=== PATIENT | male | born 1950 | race Caucasian/White ===

== ENCOUNTER → 2016-07-27 | Outpatient (REF) | payer MEDICARE, MEDICAID ==
[~2016-07-27] MED LIST: /ADVA50050; /PANT40TA; /TAMS4CA; ADV100INH INH; ADVAIR200 INHALATION; ALBU17IN INH; AMBI10TA; ASPI1TAB PO; ASPI81TA45; CELE-19 PO; DOVONEX; FLOM5CAP PO; FLOMAX 0.4 PO; FOLI1TAB; FOLIC1 PO; LEVAQUI500 PO; LOVA40TA; LOVA40TA PO; LOVASTAT40 PO; METH2.5T; METH2.5TA PO; NAPROS500 PO; NEXIUM40 PO; PRIL40CA; PRILOSEC40 PO; PROSCAR5 PO; PROV90AE; PROVENTILI PO; RISP3TAB16; SING10TA31; SING10TA32 PO; SINGULAI10 PO; TEMOVATE; TEMOVATEOI TOPICAL; TRAZ0DON5 PO; VITA50003 PO; VITA500055 PO; ZOCO5TAB; ZOLOFT100 PO; [UNRECOGNIZED DRUG - REMARK]; [UNRECOGNIZED DRUG - SUPPLY]
[2016-07-27 13:11] LABS: ALBUMIN 4.3 GM/DL (3.2-5.2); ALBUMIN/GLOBULIN RATIO 1.43 (1.00-1.93); ALKALINE PHOSPHATASE 72 U/L (45-117); ALT/SGPT 17 U/L (12-78); ANION GAP 9 MEQ/L (8-16); AST/SGOT 14 U/L (15-37); BILIRUBIN,TOTAL 0.5 MG/DL (0.2-1.0); BLOOD UREA NITROGEN 11 MG/DL (7-18); CALCIUM LEVEL 9.1 MG/DL (8.8-10.2); CARBON DIOXIDE LEVEL 30 MEQ/L (21-32); CHLORIDE LEVEL 103 MEQ/L (98-107); CHOLESTEROL LEVEL 164 MG/DL (<200); GLOMERULAR FILTRATION RATE > 60.0 (>49); GLUCOSE, FASTING 87 MG/DL (80-110); POTASSIUM SERUM 4.1 MEQ/L (3.5-5.1); SODIUM LEVEL 142 MEQ/L (136-145); TOTAL PROTEIN 7.3 GM/DL (6.4-8.2); TRIGLYCERIDES LEVEL 88 MG/DL (<150)
[2016-07-28 10:15] LABS: FREE KAPPA LIGHT CHAINS SERUM 34.98 mg/L (3.30-19.40); FREE LAMBDA LIGHT CHAINS SERUM 20.2 mg/L (5.71-26.30); KAPPA/LAMBDA RATIO SERUM 1.73 (0.26-1.65)
== END ==
LOC: M SFHCPLAZ 09:57
PROVIDERS: ATTEND Family Medicine
DX: F17.200 Nicotine dependence, unspecified, uncomplicated (principal); E55.9 Vitamin D deficiency, unspecified; D47.2 Monoclonal gammopathy; Z79.899 Other long term (current) drug therapy

== ENCOUNTER → 2016-08-03 | Outpatient (CLI) | payer MEDICARE, MEDICAID ==
[~2016-08-03] MED LIST changes: +ISOVUE-370 76% 100ML VIAL (Q9967) As Ordered ONE
--- NOTE | 2016-08-03 13:51 | REP ---
CT NECK WITH CONTRAST: HISTORY: Right posterior triangle mass. CONTRAST: Isovue 370, 75 mL. There is minimal thickening of the right base of the epiglottis. There is minimal mass effect on the right vallecula. The naso- and oropharynx, larynx and subglottic trachea are normal in appearance. The salivary and thyroid glands are normal. Small lymph nodes less than 1 cm in size are present in the posterior triangles and submandibular areas. Degenerative change is present in the cervical spine. The lung apices are clear. The visualized sinuses are clear. IMPRESSION: There is minimal thickening of the right base of the epiglottis with minimal mass effect on the right vallecula. This is suspicious for a neoplasm. Signed by Josef Pineda MD 08/03/2016 01:54 P
== END ==
LOC: M RAD 12:30
PROVIDERS: ATTEND Family Medicine
DX: R22.1 Localized swelling, mass and lump, neck (principal)
CPT/HCPCS: 70491; Q9967

== ENCOUNTER → 2016-12-29 | Outpatient (REF) | payer MEDICARE, MEDICAID ==
[~2016-12-29] MED LIST changes: -CELE-19 PO; +CELE1CAP4 PO; -ISOVUE-370 76% 100ML VIAL (Q9967) As Ordered ONE; +VITA1CAP40 PO; -VITA50003 PO
[2016-12-29 18:19] LABS: BASO % 0.4 % (0.0-1.0); EOS # 0.2 K/mm3 (0.0-0.50); EOS % 2.2 % (0.0-3.0); LARGE UNSTAINED CELL # 0.1 K/mm3 (0.0-0.4); LARGE UNSTAINED CELL % 1.3 % (0.0-4.0); LYMPH # 1.9 K/mm3 (1.5-4.5); LYMPH % 21.7 % (24.0-44.0); MEAN CORPUSCULAR HEMOGLOBIN 32.3 pg (27.0-33.0); MEAN CORPUSCULAR HGB CONC 33.5 g/dl (32.0-36.5); MEAN CORPUSCULAR VOLUME 96.4 fl (80.0-96.0); MONO # 0.5 K/mm3 (0.0-0.8); MONO % 6.4 % (0.0-5.0); NEUTROPHILS # 5.6 K/mm3 (1.8-7.7); PLATELET COUNT, AUTOMATED 191 k/mm3 (150-450); RED CELL DISTRIBUTION WIDTH 13.9 % (11.5-14.5); WHITE BLOOD COUNT 8.2 K/mm3 (4.0-10.0)
[2016-12-29 18:21] LABS: ALBUMIN 3.8 GM/DL (3.2-5.2); ALBUMIN/GLOBULIN RATIO 1.19 (1.00-1.93); ALKALINE PHOSPHATASE 78 U/L (45-117); ALT/SGPT 45 U/L (12-78); ANION GAP 8 MEQ/L (8-16); AST/SGOT 23 U/L (15-37); BILIRUBIN,TOTAL 0.3 MG/DL (0.2-1.0); BLOOD UREA NITROGEN 12 MG/DL (7-18); CALCIUM LEVEL 8.6 MG/DL (8.8-10.2); CARBON DIOXIDE LEVEL 30 MEQ/L (21-32); CHLORIDE LEVEL 106 MEQ/L (98-107); FERRITIN 33 NG/ML (26-388); GLOMERULAR FILTRATION RATE > 60.0 (>49); GLUCOSE, FASTING 95 MG/DL (80-110); INR 0.93; SODIUM LEVEL 144 MEQ/L (136-145); TOTAL IRON BINDING CAPACITY 313 UG/DL (250-450)
[2016-12-30 10:26] LABS: ALBUMIN 4.19 GM/DL (3.29-5.55); ALBUMIN % 59.9 % (55.8-66.1)
[2016-12-30 10:27] LABS: GAMMA GLOBULIN % 12.9 % (11.1-18.8)
[2016-12-31 11:59] LABS: PRETREATED FOLATE FOR RBCFOL 7.4 NG/ML
[2017-01-15 14:17] LABS: FIBROSPECT1 SEE SEPARATE REPORT
== END ==
LOC: M SFHCPLAZ 13:58
PROVIDERS: ATTEND Family Medicine
DX: L40.9 Psoriasis, unspecified (principal); D47.2 Monoclonal gammopathy; N40.1 Benign prostatic hyperplasia with lower urinary tract symptoms; D50.9 Iron deficiency anemia, unspecified
CPT/HCPCS: 36415; 80053; 82105; 82140; 82397; 82728; 82747; 83520; 83550; 83883; 84165; 85025; 85610; 85730; 90471; G0103; G0463

== ENCOUNTER → 2017-05-19 | Outpatient (REF) | payer MEDICARE, MEDICAID ==
[2017-05-19 11:51] LABS: HEMATOCRIT 43.3 % (42.0-52.0)
[2017-05-19 11:55] LABS: BASO # 0.1 10^3/uL (0.0-0.2); BASO % 0.6 % (0.0-1.0); EOS # 0.1 10^3/uL (0.0-0.50); EOS % 1.7 % (0.0-3.0); HEMOGLOBIN 14.3 g/dl (14.0-18.0); IMMATURE GRANULOCYTE % 0.5 % (0-0); LYMPH # 1.5 10^3/uL (1.5-4.5); LYMPH % 18.4 % (24.0-44.0); MEAN CORPUSCULAR HEMOGLOBIN 31.7 pg (27.0-33.0); MEAN CORPUSCULAR HGB CONC 32.5 g/dl (32.0-36.5); MEAN CORPUSCULAR VOLUME 97.6 fl (80.0-96.0); MONO # 0.6 10^3/uL (0.0-0.8); MONO % 7.6 % (0.0-5.0); NEUTROPHILS # 5.7 10^3/uL (1.8-7.7); NEUTROPHILS % 71.2 % (36.0-66.0); PLATELET COUNT, AUTOMATED 220 10^3/uL (150-450); RED BLOOD COUNT 4.51 10^6/uL (4.30-6.10); RED CELL DISTRIBUTION WIDTH 14.1 % (11.5-14.5); RETICULOCYTE # 45.1 10^9/L (17-77); WHITE BLOOD COUNT 8.1 10^3/uL (4.0-10.0)
[2017-05-19 12:10] LABS: TOTAL 25(OH) VITAMIN D 32.2 NG/ML (30.0-100.0)
[2017-05-19 12:11] LABS: PTH INTACT 36.1 PG/ML (14.0-72.0); VITAMIN B12 LEVEL 613 PG/ML (247-911)
[2017-05-19 12:13] LABS: ALBUMIN 4.3 GM/DL (3.2-5.2); ALBUMIN/GLOBULIN RATIO 1.34 (1.00-1.93); ALKALINE PHOSPHATASE 80 U/L (45-117); ALT/SGPT 35 U/L (12-78); ANION GAP 6 MEQ/L (8-16); AST/SGOT 25 U/L (7-37); BILIRUBIN,TOTAL 0.5 MG/DL (0.2-1.0); BLOOD UREA NITROGEN 15 MG/DL (7-18); CARBON DIOXIDE LEVEL 31 MEQ/L (21-32); CHLORIDE LEVEL 105 MEQ/L (98-107); CREATININE FOR GFR 0.73 MG/DL (0.70-1.30); GLOMERULAR FILTRATION RATE > 60.0 (>49); GLUCOSE, FASTING 130 MG/DL (80-110); POTASSIUM SERUM 4.1 MEQ/L (3.5-5.1); SODIUM LEVEL 142 MEQ/L (136-145); TOTAL PROTEIN 7.5 GM/DL (6.4-8.2)
[2017-05-19 12:14] LABS: ESTIMATED AVERAGE GLUCOSE 105 MG/DL (60-110); HEMOGLOBIN A1c 5.3 %
[2017-05-20 12:06] LABS: PRETREATED FOLATE FOR RBCFOL 6.7 NG/ML; RBC FOLATE 324.9 NG/ML (280-791)
[2017-05-25 00:06] LABS: FREE KAPPA LIGHT CHAINS SERUM 38.1 mg/L (3.3-19.4); FREE LAMBDA LIGHT CHAINS SERUM 21.3 mg/L (5.7-26.3); FREE LAMBDA LIGHT CHAINS URINE 1.48 mg/L (0.24-6.66); KAPPA/LAMBDA RATIO SERUM 1.79 (0.26-1.65); KAPPA/LAMBDA RATIO URINE 28.85 (2.04-10.37)
== END ==
LOC: M SFHCPLAZ 09:21
DX: L40.9 Psoriasis, unspecified (principal); D47.2 Monoclonal gammopathy; E55.9 Vitamin D deficiency, unspecified; Z79.899 Other long term (current) drug therapy
CPT/HCPCS: 82607

== ENCOUNTER → 2017-05-27 | Outpatient (CLI) | payer MEDICARE, MEDICAID | LOC: M RAD 07:41 | DX: Z12.2 Encounter for screening for malignant neoplasm of respiratory organs (principal); R91.1 Solitary pulmonary nodule; J44.9 Chronic obstructive pulmonary disease, unspecified; F17.210 Nicotine dependence, cigarettes, uncomplicated | CPT/HCPCS: G0297 ==

== ENCOUNTER → 2017-11-24 | Outpatient (CLI) | payer MEDICARE, MEDICAID | LOC: M RAD 07:33 | DX: F17.210 Nicotine dependence, cigarettes, uncomplicated (principal) | CPT/HCPCS: 71250 ==

== ENCOUNTER → 2017-12-08 | Outpatient (REF) | payer MEDICARE, MEDICAID ==
[2017-12-08 11:06] LABS: BASO % 0.4 % (0.0-1.0); EOS # 0.1 10^3/uL (0.0-0.50); EOS % 1.3 % (0.0-3.0); HEMOGLOBIN 14.8 g/dl (13.5-17.5); IMMATURE GRANULOCYTE % 0.3 % (0-3.0); LYMPH # 1.4 10^3/uL (1.5-4.5); LYMPH % 20.6 % (24.0-44.0); MEAN CORPUSCULAR HEMOGLOBIN 31.8 pg (27.0-33.0); MEAN CORPUSCULAR HGB CONC 32.9 g/dl (32.0-36.5); MEAN CORPUSCULAR VOLUME 96.8 fl (80.0-96.0); MONO # 0.7 10^3/uL (0.0-0.8); MONO % 9.5 % (0.0-5.0); NEUTROPHILS # 4.7 10^3/uL (1.8-7.7); NEUTROPHILS % 67.9 % (36.0-66.0); PLATELET COUNT, AUTOMATED 172 10^3/uL (150-450); RED BLOOD COUNT 4.65 10^6/uL (4.30-6.10); RED CELL DISTRIBUTION WIDTH 13.3 % (11.5-14.5); RETIC HEMOGLOBIN EQUIVALENT 37.5 pg (24-36); RETICULOCYTE # 32.1 10^9/L (17-77); RETICULOCYTE % 0.7 % (0.5-1.5)
[2017-12-08 11:40] LABS: ESTIMATED AVERAGE GLUCOSE 111 MG/DL (60-110); HEMOGLOBIN A1c 5.5 %
[2017-12-08 12:53] LABS: ALBUMIN/GLOBULIN RATIO 1.11 (1.00-1.93); ALKALINE PHOSPHATASE 80 U/L (45-117); ALT/SGPT 19 U/L (12-78); ANION GAP 9 MEQ/L (8-16); AST/SGOT 16 U/L (7-37); BILIRUBIN,TOTAL 0.5 MG/DL (0.2-1.0); BLOOD UREA NITROGEN 10 MG/DL (7-18); CALCIUM LEVEL 9.1 MG/DL (8.8-10.2); CARBON DIOXIDE LEVEL 29 MEQ/L (21-32); CHLORIDE LEVEL 104 MEQ/L (98-107); CREATININE FOR GFR 0.76 MG/DL (0.70-1.30); FERRITIN 40 NG/ML (26-388); GLOMERULAR FILTRATION RATE > 60.0 (>49); GLUCOSE, FASTING 92 MG/DL (70-100); IRON (FE) 65 UG/DL (65-175); PERCENT SATURATION 19.8 % (19.7-50.0); POTASSIUM SERUM 4.1 MEQ/L (3.5-5.1); SODIUM LEVEL 142 MEQ/L (136-145); TOTAL IRON BINDING CAPACITY 329 UG/DL (250-450); TOTAL PROTEIN 7.6 GM/DL (6.4-8.2)
[2017-12-09 10:02] LABS: ALPHA FETOPROTEIN TUMOR QUANT 4.7 NG/ML (<8.1)
[2017-12-09 11:29] LABS: PRETREATED FOLATE FOR RBCFOL 8.9 NG/ML; RBC FOLATE 415.3 NG/ML (280-791)
[2017-12-10 00:06] LABS: INSULIN LEVEL 5.5 uIU/mL (2.6-24.9)
[2017-12-10 00:06] LABS: FREE KAPPA LIGHT CHAINS SERUM 36.4 mg/L (3.3-19.4); FREE LAMBDA LIGHT CHAINS SERUM 18.4 mg/L (5.7-26.3); KAPPA/LAMBDA RATIO SERUM 1.98 (0.26-1.65)
== END ==
LOC: M SFHCPLAZ 09:47
DX: R73.01 Impaired fasting glucose (principal); D47.2 Monoclonal gammopathy; E53.8 Deficiency of other specified B group vitamins; E83.119 Hemochromatosis, unspecified
CPT/HCPCS: 83525

== ENCOUNTER → 2018-05-04 | Outpatient (REF) | payer MEDICARE, MEDICAID ==
[~2018-05-04] MED LIST changes: +FLOM0.4C39 PO; -FLOM5CAP PO; +METH2.5T48 PO; -METH2.5TA PO; -VITA1CAP40 PO; +VITA50005 PO
[2018-05-04 14:05] LABS: BASO % 0.5 % (0.0-1.0); EOS # 0.1 10^3/uL (0.0-0.50); EOS % 1.8 % (0.0-3.0); HEMATOCRIT 46.7 % (42.0-52.0); HEMOGLOBIN 15.3 g/dl (13.5-17.5); LYMPH % 24.8 % (24.0-44.0); MEAN CORPUSCULAR HEMOGLOBIN 31.6 pg (27.0-33.0); MEAN CORPUSCULAR HGB CONC 32.8 g/dl (32.0-36.5); MEAN CORPUSCULAR VOLUME 96.5 fl (80.0-96.0); MONO # 0.7 10^3/uL (0.0-0.8); MONO % 8.8 % (0.0-5.0); NEUTROPHILS # 5.1 10^3/uL (1.8-7.7); NEUTROPHILS % 63.7 % (36.0-66.0); PLATELET COUNT, AUTOMATED 220 10^3/uL (150-450); RED BLOOD COUNT 4.84 10^6/uL (4.30-6.10)
[2018-05-04 14:26] LABS: ALBUMIN 4.2 GM/DL (3.2-5.2); ALT/SGPT 35 U/L (12-78); BILIRUBIN,TOTAL 0.4 MG/DL (0.2-1.0); BLOOD UREA NITROGEN 13 MG/DL (7-18); CALCIUM LEVEL 9.1 MG/DL (8.8-10.2); CARBON DIOXIDE LEVEL 31 MEQ/L (21-32); CHLORIDE LEVEL 101 MEQ/L (98-107); CREATININE FOR GFR 0.78 MG/DL (0.70-1.30); GLOMERULAR FILTRATION RATE > 60.0 (>49); GLUCOSE, FASTING 85 MG/DL (70-100); SODIUM LEVEL 138 MEQ/L (136-145); TOTAL PROTEIN 7.8 GM/DL (6.4-8.2)
[2018-05-04 14:30] LABS: TOTAL 25(OH) VITAMIN D 32.7 NG/ML (30.0-100.0)
[2018-05-04 14:31] LABS: PTH INTACT 38.6 PG/ML (18.5-88.0)
[2018-05-09 12:48] LABS: ALBUMIN 4.74 GM/DL (3.29-5.55); ALBUMIN % 60.8 % (55.8-66.1); ALPHA-1-GLOBULIN % 4.5 % (2.9-4.9); ALPHA-1-GLOBULINS 0.35 GM/DL (0.17-0.41); ALPHA-2-GLOBULINS 0.82 GM/DL (0.42-0.99); ALPHA-2-GLOBULINS % 10.5 % (7.1-11.8); BETA-1-GLOBULINS 0.46 GM/DL (0.28-0.60); BETA-1-GLOBULINS % 5.9 % (4.7-7.2); BETA-2-GLOBULINS 0.41 GM/DL (0.19-0.55); BETA-2-GLOBULINS % 5.3 % (3.2-6.5); GAMMA GLOBULINS 1.01 GM/DL (0.65-1.58)
== END ==
LOC: M SFHCPLAZ 10:34
PROVIDERS: ATTEND Family Medicine
DX: E55.9 Vitamin D deficiency, unspecified (principal); Z12.5 Encounter for screening for malignant neoplasm of prostate; D47.2 Monoclonal gammopathy
CPT/HCPCS: 36415; 80053; 82306; 83970; 84165; 85025; 90682; G0008; G0103; G0463

== ENCOUNTER → 2018-07-19 | Outpatient (CLI) | payer MEDICARE, MEDICAID ==
--- NOTE | 2018-07-19 13:45 | PFTRPT ---
Height: 67.00 Inches Weight: 154.00 Lbs BSA: 1.81 Diagnosis: J44.9 DATE OF PROCEDURE: 07/19/2018 ORDERING PHYSICIAN: Dr. Junaid Abarca. INTERPRETATION: Pre and post bronchodilator study of excellent technical quality. Forced vital capacity reduced. FEV1 out of proportion. Obstructive index is, therefore, reduced. FLOW VOLUME LOOP: Expiratory limb of the flow volume loop consistent with flow rate limitation. Favorable bronchodilator response identified. LUNG VOLUME: Total lung capacity normal. Residual volume borderline for air trapping. DIFFUSING CAPACITY: Diffuse capacity if fairly reduced but does correct for alveolar volume. HEMOGLOBIN: No hemoglobin available for correction. AIRWAY MECHANICS: Airway resistance is markedly elevated with a concomitant decrease in the airway conductance. IMPRESSION: Moderate obstructive ventilatory impairment with underlying air trapping and diffusion capacity impairment. Favorable bronchodilator response. Please correlate clinically. MTDD
== END ==
LOC: M CARPUL 12:12
PROVIDERS: ATTEND Family Medicine
DX: J44.9 Chronic obstructive pulmonary disease, unspecified (principal)

== ENCOUNTER → 2018-10-19 | Outpatient (REF) | payer MEDICARE, MEDICAID ==
[~2018-10-19] MED LIST changes: -/ADVA50050; -/PANT40TA; -/TAMS4CA; +ADVA1AER2; -ASPI1TAB PO; +ASPI81TA26 PO; +FLOM0.4C39; +PROT1TAB2
[2018-10-19 12:44] LABS: BASO % 0.4 % (0.0-1.0); EOS # 0.1 10^3/uL (0.0-0.50); EOS % 0.7 % (0.0-3.0); HEMATOCRIT 45.2 % (42.0-52.0); HEMOGLOBIN 14.8 g/dl (13.5-17.5); LYMPH # 1.3 10^3/uL (1.5-4.5); LYMPH % 18.8 % (24.0-44.0); MEAN CORPUSCULAR HEMOGLOBIN 32.6 pg (27.0-33.0); MEAN CORPUSCULAR HGB CONC 32.7 g/dl (32.0-36.5); MEAN CORPUSCULAR VOLUME 99.6 fl (80.0-96.0); MONO # 0.6 10^3/uL (0.0-0.8); MONO % 8.2 % (0.0-5.0); NEUTROPHILS # 4.8 10^3/uL (1.8-7.7); NEUTROPHILS % 71.6 % (36.0-66.0); PLATELET COUNT, AUTOMATED 193 10^3/uL (150-450); RED BLOOD COUNT 4.54 10^6/uL (4.30-6.10); WHITE BLOOD COUNT 6.7 10^3/uL (4.0-10.0)
[2018-10-19 13:03] LABS: ALT/SGPT 30 U/L (12-78); BILIRUBIN,TOTAL 0.5 MG/DL (0.2-1.0); BLOOD UREA NITROGEN 13 MG/DL (7-18); CALCIUM LEVEL 9.6 MG/DL (8.8-10.2); CARBON DIOXIDE LEVEL 31 MEQ/L (21-32); CHLORIDE LEVEL 103 MEQ/L (98-107); CHOLESTEROL LEVEL 152 MG/DL (<200); CREATININE FOR GFR 0.75 MG/DL (0.70-1.30); GLOMERULAR FILTRATION RATE > 60.0 (>49); GLUCOSE, FASTING 110 MG/DL (70-100); HDL CHOLESTEROL 51 MG/DL (>40); LDL CHOLESTEROL 75 MG/DL (<100); NON-HDL-C 101 MG/DL; POTASSIUM SERUM 4.4 MEQ/L (3.5-5.1); SODIUM LEVEL 138 MEQ/L (136-145); TOTAL PROTEIN 7.5 GM/DL (6.4-8.2); TRIGLYCERIDES LEVEL 131 MG/DL (<150)
[2018-10-19 13:19] LABS: HEMOGLOBIN A1c 5.2 %
== END ==
LOC: M SFHCPLAZ 10:22
PROVIDERS: ATTEND Family Medicine
DX: R73.01 Impaired fasting glucose (principal); D47.2 Monoclonal gammopathy; D50.9 Iron deficiency anemia, unspecified; Z12.5 Encounter for screening for malignant neoplasm of prostate; E78.5 Hyperlipidemia, unspecified
CPT/HCPCS: 36415; 80053; 80061; 83036; 85025; 85046; G0103; G0463

== ENCOUNTER → 2018-11-14 | Outpatient (CLI) | payer MEDICARE, MEDICAID ==
--- NOTE | 2018-11-14 10:17 | REP ---
Low-dose lung screening CT of the chest: The study is performed without IV contrast. Images are presented at lung windowing only. Comparisons are 05/27/2017 and 11/24/2017. The right lower lobe lung nodule identified on 05/27/2017 is no longer present, compatible with transient atelectasis. The 3 ml left lower lobe lung nodule identified on 11/24/2017 is unchanged. This is a category II lung nodule with the probability of malignancy less than 1%. There is a 7 ml lung nodule in the right middle lobe on image 58. Retrospect, this is unchanged from both comparison studies, therefore, this is a category II lung nodule with the probability of malignancy less than 1%. No other lung nodules are identified. There are no infiltrates. No pleural effusions. Impression: There are category one lung nodules as described. The probability of malignancy is less than 1%. Depending on risk factors, annual follow-up low-dose lung screening CT might be considered. Electronically Signed by Bharath Galeano MD 11/14/2018 10:08 A
== END ==
LOC: M RAD 08:06
PROVIDERS: ATTEND Family Medicine
DX: F17.200 Nicotine dependence, unspecified, uncomplicated (principal); Z12.2 Encounter for screening for malignant neoplasm of respiratory organs

== ENCOUNTER → 2019-04-06 | Outpatient (REF) | payer MEDICARE, MEDICAID ==
[2019-04-06 14:14] LABS: HEMATOCRIT 44.1 % (42.0-52.0)
[2019-04-06 14:18] LABS: BASO # 0.1 10^3/uL (0.0-0.2); BASO % 0.6 % (0.0-1.0); EOS # 0.1 10^3/uL (0.0-0.5); EOS % 1.2 % (0.0-3.0); HEMATOCRIT 43.9 % (42.0-52.0); HEMOGLOBIN 13.8 g/dl (13.5-17.5); LYMPH # 1.5 10^3/uL (1.5-5.0); LYMPH % 18.9 % (24.0-44.0); MEAN CORPUSCULAR HEMOGLOBIN 31.9 pg (27.0-33.0); MEAN CORPUSCULAR HGB CONC 31.4 g/dl (32.0-36.5); MEAN CORPUSCULAR VOLUME 101.4 fl (80.0-96.0); MONO # 0.7 10^3/uL (0.0-0.8); MONO % 8.4 % (0.0-5.0); NEUTROPHILS # 5.7 10^3/uL (1.5-8.5); NEUTROPHILS % 70.7 % (36.0-66.0); PLATELET COUNT, AUTOMATED 209 10^3/uL (150-450); RED BLOOD COUNT 4.33 10^6/uL (4.30-6.10); WHITE BLOOD COUNT 8.1 10^3/uL (4.0-10.0)
[2019-04-06 15:22] LABS: ALBUMIN 3.9 GM/DL (3.2-5.2); ALT/SGPT 36 U/L (12-78); BILIRUBIN,TOTAL 0.3 MG/DL (0.2-1.0); BLOOD UREA NITROGEN 12 MG/DL (7-18); CALCIUM LEVEL 8.6 MG/DL (8.8-10.2); CARBON DIOXIDE LEVEL 31 MEQ/L (21-32); CHLORIDE LEVEL 105 MEQ/L (98-107); CREATININE FOR GFR 0.78 MG/DL (0.70-1.30); GLOMERULAR FILTRATION RATE > 60.0 (>49); GLUCOSE, FASTING 99 MG/DL (70-100); POTASSIUM SERUM 4.4 MEQ/L (3.5-5.1); SODIUM LEVEL 141 MEQ/L (136-145); TOTAL PROTEIN 7.3 GM/DL (6.4-8.2)
[2019-04-06 15:29] LABS: TOTAL 25(OH) VITAMIN D 69.2 NG/ML (30.0-100.0)
[2019-04-06 15:30] LABS: PTH INTACT 45.3 PG/ML (18.5-88.0)
[2019-04-11 00:06] LABS: FREE KAPPA LIGHT CHAINS SERUM 30.7 mg/L (3.3-19.4); FREE LAMBDA LIGHT CHAINS SERUM 15.9 mg/L (5.7-26.3); INSULIN LEVEL 13.3 uIU/mL (2.6-24.9); KAPPA/LAMBDA RATIO SERUM 1.93 (0.26-1.65)
== END ==
LOC: M SFHCPLAZ 10:56
PROVIDERS: ATTEND Family Medicine
DX: E53.8 Deficiency of other specified B group vitamins (principal); L40.9 Psoriasis, unspecified; E55.9 Vitamin D deficiency, unspecified; Z12.5 Encounter for screening for malignant neoplasm of prostate; R73.01 Impaired fasting glucose; D47.2 Monoclonal gammopathy
CPT/HCPCS: 36415; 80053; 82172; 82306; 82747; 83010; 83525; 83883; 83970; 85025; G0103; G0463

== ENCOUNTER → 2019-08-31 | Outpatient (REF) | payer MEDICARE, MEDICAID ==
[2019-08-31 11:33] LABS: BASO # 0.1 10^3/uL (0.0-0.2); BASO % 0.7 % (0.0-1.0); EOS # 0.1 10^3/uL (0.0-0.5); EOS % 1.1 % (0.0-3.0); HEMATOCRIT 43.7 % (42.0-52.0); HEMOGLOBIN 14.3 g/dl (13.5-17.5); LYMPH # 1.4 10^3/uL (1.5-5.0); LYMPH % 19.1 % (24.0-44.0); MEAN CORPUSCULAR HEMOGLOBIN 32.4 pg (27.0-33.0); MEAN CORPUSCULAR HGB CONC 32.7 g/dl (32.0-36.5); MEAN CORPUSCULAR VOLUME 98.9 fl (80.0-96.0); MONO # 0.7 10^3/uL (0.0-0.8); MONO % 9.9 % (0.0-5.0); NEUTROPHILS # 5.1 10^3/uL (1.5-8.5); NEUTROPHILS % 68.7 % (36.0-66.0); PLATELET COUNT, AUTOMATED 197 10^3/uL (150-450); RED BLOOD COUNT 4.42 10^6/uL (4.30-6.10); WHITE BLOOD COUNT 7.5 10^3/uL (4.0-10.0)
[2019-08-31 11:34] LABS: ALT/SGPT 27 U/L (12-78); BILIRUBIN,TOTAL 0.5 MG/DL (0.2-1.0); BLOOD UREA NITROGEN 11 MG/DL (7-18); CALCIUM LEVEL 9.3 MG/DL (8.8-10.2); CARBON DIOXIDE LEVEL 31 MEQ/L (21-32); CHLORIDE LEVEL 103 MEQ/L (98-107); CREATININE FOR GFR 0.79 MG/DL (0.70-1.30); FERRITIN 72 NG/ML (26-388); GLOMERULAR FILTRATION RATE > 60.0 (>49); GLUCOSE, FASTING 101 MG/DL (70-100); HEMATOCRIT 43.7 % (42.0-52.0); IRON (FE) 96 UG/DL (65-175); PERCENT SATURATION 31.2 % (19.7-50.0); POTASSIUM SERUM 4.4 MEQ/L (3.5-5.1); SODIUM LEVEL 139 MEQ/L (136-145); TOTAL IRON BINDING CAPACITY 308 UG/DL (250-450); TOTAL PROTEIN 7.4 GM/DL (6.4-8.2)
[2019-08-31 11:42] LABS: VITAMIN B12 LEVEL 666 PG/ML (247-911)
== END ==
LOC: M SFHCPLAZ 09:50
PROVIDERS: ATTEND Family Medicine
DX: E53.8 Deficiency of other specified B group vitamins (principal); R73.01 Impaired fasting glucose; E83.119 Hemochromatosis, unspecified; Z12.5 Encounter for screening for malignant neoplasm of prostate
CPT/HCPCS: 36415; 80053; 82607; 82728; 82747; 83525; 83550; 85025; G0103; G0463

== ENCOUNTER → 2020-01-04 | Outpatient (CLI) | payer MEDICARE, MEDICAID ==
[2020-01-04 14:24] LABS: HEMATOCRIT 43.6 % (42.0-52.0); HEMOGLOBIN 14.3 g/dl (13.5-17.5); MEAN CORPUSCULAR HEMOGLOBIN 33.3 pg (27.0-33.0); MEAN CORPUSCULAR HGB CONC 32.8 g/dl (32.0-36.5); MEAN CORPUSCULAR VOLUME 101.6 fl (80.0-96.0); PLATELET COUNT, AUTOMATED 196 10^3/uL (150-450); RED BLOOD COUNT 4.29 10^6/uL (4.30-6.10); WHITE BLOOD COUNT 7.3 10^3/uL (4.0-10.0)
[2020-01-04 14:42] LABS: ALBUMIN 3.9 GM/DL (3.2-5.2); ALT/SGPT 41 U/L (12-78); BILIRUBIN,TOTAL 0.4 MG/DL (0.2-1.0); BLOOD UREA NITROGEN 9 MG/DL (7-18); CALCIUM LEVEL 8.9 MG/DL (8.8-10.2); CARBON DIOXIDE LEVEL 30 MEQ/L (21-32); CHLORIDE LEVEL 104 MEQ/L (98-107); CREATININE FOR GFR 0.81 MG/DL (0.70-1.30); GLOMERULAR FILTRATION RATE > 60.0 (>49); GLUCOSE, FASTING 130 MG/DL (70-100); SODIUM LEVEL 140 MEQ/L (136-145); TOTAL PROTEIN 7.3 GM/DL (6.4-8.2)
[2020-01-04 15:35] LABS: HEMOGLOBIN A1c 5.3 %
[2020-01-05 18:11] LABS: FREE KAPPA LIGHT CHAINS SERUM 40.2 mg/L (3.3-19.4); FREE LAMBDA LIGHT CHAINS SERUM 19.2 mg/L (5.7-26.3); KAPPA/LAMBDA RATIO SERUM 2.09 (0.26-1.65)
[2020-01-08 12:31] LABS: ALBUMIN 4.36 GM/DL (3.29-5.55); ALBUMIN % 59.7 % (55.8-66.1); ALPHA-1-GLOBULIN % 4.7 % (2.9-4.9); ALPHA-1-GLOBULINS 0.34 GM/DL (0.17-0.41); BETA-1-GLOBULINS 0.44 GM/DL (0.28-0.60); BETA-2-GLOBULINS % 5.5 % (3.2-6.5); GAMMA GLOBULIN % 13.1 % (11.1-18.8); GAMMA GLOBULINS 0.96 GM/DL (0.65-1.58)
== END ==
LOC: M PLALAB 09:22
PROVIDERS: ATTEND Family Medicine
DX: D47.2 Monoclonal gammopathy (principal); Z12.5 Encounter for screening for malignant neoplasm of prostate; Z51.81 Encounter for therapeutic drug level monitoring; Z79.899 Other long term (current) drug therapy
CPT/HCPCS: 36415; 80053; 83036; 83883; 84165; 85027; G0103; G0463

== ENCOUNTER → 2020-07-22 | Outpatient (REF) | payer MEDICARE, MEDICAID ==
[2020-07-22 10:58] LABS: BASO % 0.6 % (0.0-1.0); EOS # 0.1 10^3/uL (0.0-0.5); EOS % 1.1 % (0.0-3.0); HEMATOCRIT 43.5 % (42.0-52.0); HEMOGLOBIN 14.6 g/dl (13.5-17.5); LYMPH # 1.3 10^3/uL (1.5-5.0); LYMPH % 20.2 % (24.0-44.0); MEAN CORPUSCULAR HEMOGLOBIN 32.7 pg (27.0-33.0); MEAN CORPUSCULAR HGB CONC 33.6 g/dl (32.0-36.5); MEAN CORPUSCULAR VOLUME 97.3 fl (80.0-96.0); MONO # 0.8 10^3/uL (0.0-0.8); MONO % 12.8 % (2.0-8.0); NEUTROPHILS # 4.2 10^3/uL (1.5-8.5); NEUTROPHILS % 64.7 % (36.0-66.0); PLATELET COUNT, AUTOMATED 198 10^3/uL (150-450); RED BLOOD COUNT 4.47 10^6/uL (4.30-6.10); WHITE BLOOD COUNT 6.5 10^3/uL (4.0-10.0)
[2020-07-22 11:07] LABS: INR 0.95; PROTHROMBIN TIME 12.8 SECONDS (12.5-14.3)
[2020-07-22 11:08] LABS: PARTIAL THROMBOPLASTIN TIME 29.6 SECONDS (24.2-38.5)
[2020-07-22 11:48] LABS: ALT/SGPT 28 U/L (12-78); BILIRUBIN,TOTAL 0.5 MG/DL (0.2-1.0); BLOOD UREA NITROGEN 8 MG/DL (7-18); CALCIUM LEVEL 9.1 MG/DL (8.8-10.2); CARBON DIOXIDE LEVEL 29 MEQ/L (21-32); CHLORIDE LEVEL 100 MEQ/L (98-107); CHOLESTEROL LEVEL 153 MG/DL (<200); CHOLESTEROL RISK RATIO 2.942 (<5); CREATININE FOR GFR 0.74 MG/DL (0.70-1.30); FERRITIN 85 NG/ML (26-388); GLOMERULAR FILTRATION RATE > 60.0 (>49); GLUCOSE, FASTING 79 MG/DL (70-100); HDL CHOLESTEROL 52 MG/DL (>40); IRON (FE) 76 UG/DL (65-175); LDL CHOLESTEROL 79 MG/DL (<100); NON-HDL-C 101 MG/DL; PERCENT SATURATION 25.5 % (19.7-50.0); POTASSIUM SERUM 4.3 MEQ/L (3.5-5.1); SODIUM LEVEL 137 MEQ/L (136-145); TOTAL IRON BINDING CAPACITY 298 UG/DL (250-450); TOTAL PROTEIN 7.1 GM/DL (6.4-8.2); TRIGLYCERIDES LEVEL 110 MG/DL (<150)
[2020-07-23 11:06] LABS: ALBUMIN % 59.2 % (55.8-66.1); ALPHA-1-GLOBULIN % 4.8 % (2.9-4.9); ALPHA-2-GLOBULINS % 10.9 % (7.1-11.8); BETA-1-GLOBULINS % 6.1 % (4.7-7.2); BETA-2-GLOBULINS % 5.6 % (3.2-6.5); GAMMA GLOBULIN % 13.4 % (11.1-18.8)
[2020-07-23 11:07] LABS: ALPHA-1-GLOBULINS 0.34 GM/DL (0.17-0.41); ALPHA-2-GLOBULINS 0.77 GM/DL (0.42-0.99); BETA-1-GLOBULINS 0.43 GM/DL (0.28-0.60); GAMMA GLOBULINS 0.95 GM/DL (0.65-1.58)
== END ==
LOC: M SFHCPLAZ 08:41
PROVIDERS: ATTEND Family Medicine
DX: E83.119 Hemochromatosis, unspecified (principal); E78.5 Hyperlipidemia, unspecified; L40.9 Psoriasis, unspecified; R73.01 Impaired fasting glucose; Z12.5 Encounter for screening for malignant neoplasm of prostate; D47.2 Monoclonal gammopathy
CPT/HCPCS: 36415; 80053; 80061; 82105; 82140; 82172; 82728; 83010; 83550; 83883; 84165; 85025; 85610; 85730; G0103

== ENCOUNTER → 2020-08-04 | Outpatient (CLI) | payer MEDICARE, MEDICAID ==
--- NOTE | 2020-08-05 03:03 | REP ---
INDICATION: SCREENING FOR LUNG CA COMPARISON: Multiple examinations dating through 12/27/2012 TECHNIQUE: Axial noncontrast images from the thoracic inlet to the upper abdomen using low-dose lung screening technique (LDCT). FINDINGS: Moderate emphysematous changes with scattered scarring and very subtle infrahilar bronchiectasis again noted. 6 mm noncalcified perifissural nodule along the minor fissure is unchanged as well as small 3 mm left lower lobe nodule. No new consolidation, significant nodule or mass lesion is appreciated. No pleural effusion. No pneumothorax. Tracheobronchial tree is patent. Atherosclerotic changes to the thoracic aorta and coronary arteries noted without obvious aortic aneurysm or cardiomegaly. IMPRESSION: Stable emphysematous changes and stable few scattered noncalcified densities. Lung-RADS category 2. Management recommendations include annual low-dose CT re-evaluation. <Electronically signed by Judah Ramirez > 08/05/20 0259
== END ==
LOC: M RAD 12:58
PROVIDERS: ATTEND Family Medicine
DX: Z12.2 Encounter for screening for malignant neoplasm of respiratory organs (principal); R91.8 Other nonspecific abnormal finding of lung field

== ENCOUNTER → 2020-10-23 | Outpatient (REF) | payer MEDICARE, MEDICAID ==
[2020-10-23 14:13] LABS: BASO % 0.5 % (0.0-1.0); EOS # 0.1 10^3/uL (0.0-0.5); EOS % 0.7 % (0.0-3.0); HEMATOCRIT 44.8 % (42.0-52.0); HEMOGLOBIN 14.5 g/dl (13.5-17.5); LYMPH # 1.3 10^3/uL (1.5-5.0); LYMPH % 15.2 % (24.0-44.0); MEAN CORPUSCULAR HGB CONC 32.4 g/dl (32.0-36.5); MEAN CORPUSCULAR VOLUME 98.9 fl (80.0-96.0); MONO # 0.5 10^3/uL (0.0-0.8); MONO % 6.4 % (2.0-8.0); NEUTROPHILS # 6.5 10^3/uL (1.5-8.5); NEUTROPHILS % 76.7 % (36.0-66.0); PLATELET COUNT, AUTOMATED 213 10^3/uL (150-450); RED BLOOD COUNT 4.53 10^6/uL (4.30-6.10); WHITE BLOOD COUNT 8.5 10^3/uL (4.0-10.0)
[2020-10-23 14:17] LABS: HEMATOCRIT 44.8 % (42.0-52.0)
[2020-10-23 14:45] LABS: HEMOGLOBIN A1c 5.4 %
[2020-10-23 14:47] LABS: ALBUMIN 3.9 GM/DL (3.2-5.2); ALT/SGPT 46 U/L (12-78); BILIRUBIN,TOTAL 0.4 MG/DL (0.2-1.0); BLOOD UREA NITROGEN 11 MG/DL (7-18); CARBON DIOXIDE LEVEL 30 MEQ/L (21-32); CHLORIDE LEVEL 104 MEQ/L (98-107); CREATININE FOR GFR 0.69 MG/DL (0.70-1.30); GLOMERULAR FILTRATION RATE > 60.0 (>49); GLUCOSE, FASTING 155 MG/DL (70-100); POTASSIUM SERUM 4.1 MEQ/L (3.5-5.1); PTH INTACT 39.9 PG/ML (18.5-88.0); SODIUM LEVEL 139 MEQ/L (136-145); TOTAL 25(OH) VITAMIN D 84.6 NG/ML (30.0-100.0); TOTAL PROTEIN 7.2 GM/DL (6.4-8.2)
[2020-10-24 17:07] LABS: FREE KAPPA LIGHT CHAINS SERUM 48.8 mg/L (3.3-19.4); FREE KAPPA LIGHT CHAINS URINE 22.9 mg/L (0.63-113.79); FREE LAMBDA LIGHT CHAINS SERUM 19.4 mg/L (5.7-26.3); FREE LAMBDA LIGHT CHAINS URINE 1.09 mg/L (0.47-11.77); KAPPA/LAMBDA RATIO SERUM 2.52 (0.26-1.65); KAPPA/LAMBDA RATIO URINE 21.01 (1.03-31.76)
[2020-10-28 13:02] LABS: ALBUMIN 4.22 GM/DL (3.29-5.55); ALBUMIN % 58.6 % (55.8-66.1); ALPHA-1-GLOBULINS 0.36 GM/DL (0.17-0.41); ALPHA-2-GLOBULINS 0.83 GM/DL (0.42-0.99); ALPHA-2-GLOBULINS % 11.5 % (7.1-11.8); BETA-1-GLOBULINS 0.43 GM/DL (0.28-0.60); BETA-2-GLOBULINS 0.38 GM/DL (0.19-0.55); BETA-2-GLOBULINS % 5.3 % (3.2-6.5); GAMMA GLOBULIN % 13.6 % (11.1-18.8); GAMMA GLOBULINS 0.98 GM/DL (0.65-1.58)
== END ==
LOC: M SFHCPLAZ 10:35
PROVIDERS: ATTEND Family Medicine
DX: R73.01 Impaired fasting glucose (principal); E53.8 Deficiency of other specified B group vitamins; D47.2 Monoclonal gammopathy; E55.9 Vitamin D deficiency, unspecified
CPT/HCPCS: 36415; 80053; 82306; 82747; 83036; 83883; 83970; 84165; 85025; G0463

== ENCOUNTER → 2020-11-17 | Outpatient (CLI) | payer MEDICARE, MEDICAID ==
--- NOTE | 2020-11-17 08:59 | PFTRPT ---
Site: [facility], [address] [place], [address] ID: [id number] Name: ELAINE POPE Visit Date: 11/17/2020 Second ID: [id number] Referring Doctor: MD Abarca Ryan Reviewing Doctor: Petar Morrow MD Hose Wrapper: Tim THORNTON RRT Age: 70 : 1950 Sex: Male Race: Height: 67.00 Inches Weight: 166.00 Lbs BSA: 1.87 Order IDs: [id number] Requested Test(s): <RESP-PFT.PFT B/A> Diagnosis: J44.9 test meet the ATS standards for acceptability and repeatability. The results of this test appear to be valid, although the ATS standard for "end of test" was not met. Pt was given four puffs of albuterol for post bronchodilator. Review Status: Not Reviewed Pre-Bronch Post-Bronch Pred Actual %Pred Actual %Chng SPIROMETRY FVC (L) 3.99 2.43 60 2.66 9 FEV1 (L) 2.94 1.12 38 1.29 14 FEV1/FVC (%) 74 46 62 48 4 FEF 25% (L/sec) 6.65 1.12 16 1.48 31 FEF 50% (L/sec) 4.08 0.52 12 0.69 32 FEF 75% (L/sec) 1.12 0.19 16 0.29 59 FEF 25-75% (L/sec) 2.28 0.43 18 0.62 43 FEF Max (L/sec) 7.86 2.35 29 2.86 21 FIVC (L) 2.43 2.53 4 FIF 50% (L/sec) 4.50 3.20 71 3.52 9 FIF Max (L/sec) 3.24 3.69 14 MVV (L/min) 120 33 27 Expiratory Time (sec) 8.45 7.96 -5 Back Extrap Vol (L) 0.03 0.04 21 Time To FEFmax (sec) 0.090 0.086 -4 LUNG VOLUMES SVC (L) 4.17 2.80 67 IC (L) 3.06 1.64 53 ERV (L) 1.11 1.16 104 TGV (L) 3.36 4.50 133 RV (Pleth) (L) 2.25 3.33 148 TLC (Pleth) (L) 6.42 6.13 95 RV/TLC (Pleth) (%) 35 54 155 DIFFUSION DLCOunc (ml/min/mmHg) 25.26 15.13 59 DL/VA (ml/min/mmHg/L) 3.93 3.53 89 VA (L) 6.42 4.29 66 BHT (sec) 10.79 IVC (L) 2.70 TLC (SB) (L) 4.44 AIRWAYS RESISTANCE Raw (cmH2O/L/s) 1.45 3.73 257 Gaw (L/s/cmH2O) 1.03 0.29 28 sRaw (cmH2O*s) 4.76 18.92 397 sGaw (1/cmH2O*s) 0.20 0.06 29
== END ==
LOC: M CARPUL 08:26
PROVIDERS: ATTEND Family Medicine
DX: J44.9 Chronic obstructive pulmonary disease, unspecified (principal)

== ENCOUNTER → 2021-03-02 | Outpatient (CLI) | payer MEDICARE, MEDICAID ==
[2021-03-02 18:33] LABS: HEMATOCRIT 42.8 % (42.0-52.0)
[2021-03-02 18:34] LABS: BASO # 0.1 10^3/uL (0.0-0.2); BASO % 0.6 % (0.0-1.0); EOS # 0.1 10^3/uL (0.0-0.5); EOS % 1.1 % (0.0-3.0); HEMATOCRIT 43.6 % (42.0-52.0); HEMOGLOBIN 14.1 g/dl (13.5-17.5); LYMPH # 1.5 10^3/uL (1.5-5.0); LYMPH % 18.1 % (24.0-44.0); MEAN CORPUSCULAR HEMOGLOBIN 32.6 pg (27.0-33.0); MEAN CORPUSCULAR HGB CONC 32.3 g/dl (32.0-36.5); MEAN CORPUSCULAR VOLUME 100.7 fl (80.0-96.0); MONO % 11.8 % (2.0-8.0); NEUTROPHILS # 5.6 10^3/uL (1.5-8.5); NEUTROPHILS % 67.9 % (36.0-66.0); PLATELET COUNT, AUTOMATED 209 10^3/uL (150-450); RED BLOOD COUNT 4.33 10^6/uL (4.30-6.10); WHITE BLOOD COUNT 8.3 10^3/uL (4.0-10.0)
[2021-03-02 19:00] LABS: ALBUMIN 3.9 GM/DL (3.2-5.2); ALT/SGPT 35 U/L (12-78); BILIRUBIN,TOTAL 0.3 MG/DL (0.2-1.0); BLOOD UREA NITROGEN 15 MG/DL (7-18); CALCIUM LEVEL 9.3 MG/DL (8.8-10.2); CARBON DIOXIDE LEVEL 31 MEQ/L (21-32); CHLORIDE LEVEL 105 MEQ/L (98-107); CREATININE FOR GFR 0.82 MG/DL (0.70-1.30); GLOMERULAR FILTRATION RATE > 60.0 (>49); GLUCOSE, FASTING 99 MG/DL (70-100); NT-PRO BNP 96 PG/ML (<125); POTASSIUM SERUM 4.4 MEQ/L (3.5-5.1); SODIUM LEVEL 141 MEQ/L (136-145); TOTAL PROTEIN 7.2 GM/DL (6.4-8.2)
[2021-03-02 19:07] LABS: VITAMIN B12 LEVEL 466 PG/ML (247-911)
== END ==
LOC: M PLALAB 13:04
PROVIDERS: ATTEND Family Medicine
DX: E53.8 Deficiency of other specified B group vitamins (principal)
CPT/HCPCS: 36415; 80053; 82607; 82747; 83880; 85025; G0463

== ENCOUNTER → 2021-06-18 | Outpatient (CLI) | payer MEDICARE, MEDICAID | LOC: M CARPUL 09:37 | PROVIDERS: ATTEND Family Medicine | DX: J44.9 Chronic obstructive pulmonary disease, unspecified (principal) ==

== ENCOUNTER → 2021-08-05 | Outpatient (CLI) | payer MEDICARE, MEDICAID | LOC: M RAD 07:28 | PROVIDERS: ATTEND Family Medicine | DX: Z87.891 Personal history of nicotine dependence (principal) ==

== ENCOUNTER → 2021-08-07 | Outpatient (CLI) | payer MEDICARE, MEDICAID ==
[2021-08-07 13:16] LABS: BASO % 0.4 % (0.0-1.0); EOS # 0.1 10^3/uL (0.0-0.5); EOS % 0.7 % (0.0-3.0); HEMATOCRIT 44.2 % (42.0-52.0); HEMOGLOBIN 14.8 g/dl (13.5-17.5); LYMPH # 1.3 10^3/uL (1.5-5.0); LYMPH % 12.9 % (24.0-44.0); MEAN CORPUSCULAR HEMOGLOBIN 32.5 pg (27.0-33.0); MEAN CORPUSCULAR HGB CONC 33.5 g/dl (32.0-36.5); MEAN CORPUSCULAR VOLUME 96.9 fl (80.0-96.0); MONO # 0.9 10^3/uL (0.0-0.8); MONO % 8.9 % (2.0-8.0); NEUTROPHILS # 7.4 10^3/uL (1.5-8.5); NEUTROPHILS % 76.8 % (36.0-66.0); PLATELET COUNT, AUTOMATED 211 10^3/uL (150-450); RED BLOOD COUNT 4.56 10^6/uL (4.30-6.10); WHITE BLOOD COUNT 9.7 10^3/uL (4.0-10.0)
[2021-08-07 13:58] LABS: ALT/SGPT 25 U/L (12-78); BILIRUBIN,TOTAL 0.5 MG/DL (0.2-1.0); BLOOD UREA NITROGEN 13 MG/DL (7-18); CALCIUM LEVEL 9.3 MG/DL (8.8-10.2); CARBON DIOXIDE LEVEL 30 MEQ/L (21-32); CHLORIDE LEVEL 103 MEQ/L (98-107); CHOLESTEROL LEVEL 148 MG/DL (<200); CREATININE FOR GFR 0.77 MG/DL (0.70-1.30); GLOMERULAR FILTRATION RATE > 60.0 (>49); GLUCOSE, FASTING 92 MG/DL (70-100); HDL CHOLESTEROL 50 MG/DL (>40); POTASSIUM SERUM 4.1 MEQ/L (3.5-5.1); PTH INTACT 32.8 PG/ML (18.5-88.0); SODIUM LEVEL 139 MEQ/L (136-145); TRIGLYCERIDES LEVEL 150 MG/DL (<150)
[2021-08-07 13:59] LABS: FERRITIN 77 NG/ML (26-388); FREE T4 1.07 NG/DL (0.76-1.46); IRON (FE) 45 UG/DL (65-175); LDL CHOLESTEROL 68 MG/DL (<100); NON-HDL-C 98 MG/DL; PERCENT SATURATION 13.7 % (19.7-50.0); THYROID STIMULATING HORMONE 0.315 uIU/ML (0.358-3.740); TOTAL 25(OH) VITAMIN D 83.2 NG/ML (30.0-100.0); TOTAL IRON BINDING CAPACITY 328 UG/DL (250-450); TOTAL PROTEIN 7.3 GM/DL (6.4-8.2)
[2021-08-08 18:11] LABS: FREE KAPPA LIGHT CHAINS SERUM 53.1 mg/L (3.3-19.4); FREE LAMBDA LIGHT CHAINS SERUM 19.4 mg/L (5.7-26.3); KAPPA/LAMBDA RATIO SERUM 2.74 (0.26-1.65)
[2021-08-12 13:30] LABS: ALBUMIN 4.31 GM/DL (3.29-5.55); ALBUMIN % 59.1 % (55.8-66.1); ALPHA-1-GLOBULIN % 5.1 % (2.9-4.9); ALPHA-1-GLOBULINS 0.37 GM/DL (0.17-0.41); ALPHA-2-GLOBULINS 0.87 GM/DL (0.42-0.99); ALPHA-2-GLOBULINS % 11.9 % (7.1-11.8); BETA-1-GLOBULINS 0.42 GM/DL (0.28-0.60); BETA-1-GLOBULINS % 5.8 % (4.7-7.2); BETA-2-GLOBULINS 0.38 GM/DL (0.19-0.55); BETA-2-GLOBULINS % 5.2 % (3.2-6.5); GAMMA GLOBULIN % 12.9 % (11.1-18.8); GAMMA GLOBULINS 0.94 GM/DL (0.65-1.58)
== END ==
LOC: M PLALAB 11:15
PROVIDERS: ATTEND Family Medicine
DX: D47.2 Monoclonal gammopathy (principal); D50.9 Iron deficiency anemia, unspecified; Z12.5 Encounter for screening for malignant neoplasm of prostate; E55.9 Vitamin D deficiency, unspecified; E78.5 Hyperlipidemia, unspecified; Z79.899 Other long term (current) drug therapy

== ENCOUNTER → 2022-02-04 | Outpatient (CLI) | payer MEDICARE, MEDICAID ==
[2022-02-04 13:10] LABS: RED BLOOD COUNT 4.74 10^6/uL (4.30-6.10); WHITE BLOOD COUNT 9.4 10^3/uL (4.0-10.0)
[2022-02-04 13:11] LABS: BASO % 0.4 % (0.0-1.0); EOS # 0.1 10^3/uL (0.0-0.5); EOS % 1.1 % (0.0-3.0); HEMATOCRIT 46.7 % (42.0-52.0); HEMOGLOBIN 15.1 g/dl (13.5-17.5); LYMPH # 1.6 10^3/uL (1.5-5.0); LYMPH % 16.9 % (24.0-44.0); MEAN CORPUSCULAR HEMOGLOBIN 31.9 pg (27.0-33.0); MEAN CORPUSCULAR HGB CONC 32.3 g/dl (32.0-36.5); MEAN CORPUSCULAR VOLUME 98.5 fl (80.0-96.0); MONO # 0.6 10^3/uL (0.0-0.8); MONO % 6.4 % (2.0-8.0); NEUTROPHILS % 74.8 % (36.0-66.0); PLATELET COUNT, AUTOMATED 217 10^3/uL (150-450)
[2022-02-04 13:37] LABS: HEMOGLOBIN A1c 5.6 %
[2022-02-04 14:03] LABS: FERRITIN 78 NG/ML (26-388); FREE T4 1.06 NG/DL (0.76-1.46); THYROID STIMULATING HORMONE 0.475 uIU/ML (0.358-3.740); TOTAL PROTEIN 7.7 GM/DL (6.4-8.2)
[2022-02-04 14:42] LABS: THYROGLOBULIN ANTIBODY < 15.0 U/ML (<60.0); THYROID PEROXIDASE ANTIBODY 37.5 U/ML (<60.0)
[2022-02-05 12:16] LABS: ALBUMIN % 57.2 % (55.8-66.1); ALPHA-1-GLOBULIN % 5.5 % (2.9-4.9); ALPHA-1-GLOBULINS 0.42 GM/DL (0.17-0.41); ALPHA-2-GLOBULINS % 11.7 % (7.1-11.8); BETA-1-GLOBULINS 0.47 GM/DL (0.28-0.60); BETA-1-GLOBULINS % 6.1 % (4.7-7.2); BETA-2-GLOBULINS 0.42 GM/DL (0.19-0.55); BETA-2-GLOBULINS % 5.5 % (3.2-6.5)
[2022-02-05 12:17] LABS: GAMMA GLOBULINS 1.08 GM/DL (0.65-1.58)
[2022-02-06 15:08] LABS: PSA % FREE 7.5 % (.); TSH RECEPTOR ASSAY <1.10 IU/L (0.00-1.75)
== END ==
LOC: M PLALAB 11:59
PROVIDERS: ATTEND Family Medicine
DX: D47.2 Monoclonal gammopathy (principal); D50.9 Iron deficiency anemia, unspecified; R73.01 Impaired fasting glucose; Z12.5 Encounter for screening for malignant neoplasm of prostate; Z79.899 Other long term (current) drug therapy

== ENCOUNTER → 2022-08-05 | Outpatient (CLI) | payer MEDICARE, MEDICAID ==
[~2022-08-05] MED LIST changes: +MONT-5 PO; -SING10TA32 PO
[2022-08-05 15:15] LABS: BASO # 0.1 10^3/uL (0.0-0.2); BASO % 0.7 % (0.0-1.0); EOS # 0.1 10^3/uL (0.0-0.5); EOS % 1.4 % (0.0-3.0); HEMATOCRIT 44.6 % (42.0-52.0); HEMOGLOBIN 14.5 g/dl (13.5-17.5); LYMPH # 1.4 10^3/uL (1.5-5.0); LYMPH % 19.7 % (24.0-44.0); MEAN CORPUSCULAR HGB CONC 32.5 g/dl (32.0-36.5); MEAN CORPUSCULAR VOLUME 98.5 fl (80.0-96.0); MONO # 0.6 10^3/uL (0.0-0.8); MONO % 8.7 % (2.0-8.0); NEUTROPHILS # 4.8 10^3/uL (1.5-8.5); NEUTROPHILS % 68.9 % (36.0-66.0); PLATELET COUNT, AUTOMATED 187 10^3/uL (150-450); RED BLOOD COUNT 4.53 10^6/uL (4.30-6.10)
[2022-08-05 15:48] LABS: ALBUMIN 3.7 G/DL (3.2-5.2); ALKALINE PHOSPHATASE 94 U/L (46-116); ALT/SGPT 28 U/L (7.0-40); AST/SGOT 28 U/L (<34); BILIRUBIN,TOTAL 0.3 MG/DL (0.3-1.2); BLOOD UREA NITROGEN 14 MG/DL (9-23); CALCIUM LEVEL 8.7 MG/DL (8.3-10.6); CARBON DIOXIDE LEVEL 32 MMOL/L (20-31); CHLORIDE LEVEL 104 MMOL/L (98-107); CHOLESTEROL LEVEL 155 MG/DL (<200); CHOLESTEROL RISK RATIO 3.16 (<5); CREATININE FOR GFR 0.65 MG/DL (0.70-1.30); GLOMERULAR FILTRATION RATE > 60.0 (>42); GLUCOSE, FASTING 98 MG/DL (74-106); LDL CHOLESTEROL 53.8 MG/DL (<100); POTASSIUM SERUM 4.3 MMOL/L (3.5-5.1); SODIUM LEVEL 141 MMOL/L (136-145); TOTAL PROTEIN 6.6 G/DL (5.7-8.2); TRIGLYCERIDES LEVEL 261 MG/DL (<150)
[2022-08-05 15:57] LABS: HEMOGLOBIN A1c 5.3 % (4.0-6.0)
[2022-08-05 19:30] LABS: HEMATOCRIT 44.6 % (42.0-52.0)
== END ==
LOC: M PLALAB 11:41
PROVIDERS: ATTEND Family Medicine
DX: R73.01 Impaired fasting glucose (principal); D50.9 Iron deficiency anemia, unspecified; E53.8 Deficiency of other specified B group vitamins; Z12.5 Encounter for screening for malignant neoplasm of prostate; Z79.899 Other long term (current) drug therapy
CPT/HCPCS: 36415; 80053; 80061; 82747; 83036; 83525; 85025; G0103

== ENCOUNTER → 2022-09-24 | Outpatient (CLI) | payer MEDICARE, MEDICAID | LOC: M RAD 07:30 | PROVIDERS: ATTEND Family Medicine | DX: Z87.891 Personal history of nicotine dependence (principal) ==

== ENCOUNTER → 2022-10-05 | Outpatient (REF) | payer MEDICARE, MEDICAID | LOC: M SFHCPLAZ 09:12 | PROVIDERS: ATTEND Family Medicine | DX: E53.8 Deficiency of other specified B group vitamins (principal); D47.2 Monoclonal gammopathy; L40.9 Psoriasis, unspecified ==

== ENCOUNTER → 2022-11-09 | Outpatient (CLI) | payer MEDICARE, MEDICAID ==
[2022-11-09 13:41] LABS: HEMATOCRIT 47.7 % (42.0-52.0)
[2022-11-09 13:43] LABS: BASO % 0.6 % (0.0-1.0); EOS # 0.1 10^3/uL (0.0-0.5); EOS % 1.2 % (0.0-3.0); HEMATOCRIT 47.9 % (42.0-52.0); HEMOGLOBIN 15.6 g/dl (13.5-17.5); LYMPH # 1.2 10^3/uL (1.5-5.0); LYMPH % 17.8 % (24.0-44.0); MEAN CORPUSCULAR HEMOGLOBIN 32.1 pg (27.0-33.0); MEAN CORPUSCULAR HGB CONC 32.6 g/dl (32.0-36.5); MEAN CORPUSCULAR VOLUME 98.6 fl (80.0-96.0); MONO % 14.6 % (2.0-8.0); NEUTROPHILS # 4.5 10^3/uL (1.5-8.5); NEUTROPHILS % 65.4 % (36.0-66.0); PLATELET COUNT, AUTOMATED 186 10^3/uL (150-450); RED BLOOD COUNT 4.86 10^6/uL (4.30-6.10); WHITE BLOOD COUNT 6.8 10^3/uL (4.0-10.0)
[2022-11-09 14:22] LABS: ALKALINE PHOSPHATASE 106 U/L (46-116); ALT/SGPT 21 U/L (7.0-40); AST/SGOT 14 U/L (<34); BILIRUBIN,TOTAL 0.4 MG/DL (0.3-1.2); BLOOD UREA NITROGEN 13 MG/DL (9-23); CALCIUM LEVEL 10.1 MG/DL (8.3-10.6); CARBON DIOXIDE LEVEL 30 MMOL/L (20-31); CHLORIDE LEVEL 103 MMOL/L (98-107); CREATININE FOR GFR 0.64 MG/DL (0.70-1.30); FERRITIN 49.4 NG/ML (10.5-307.3); GLOMERULAR FILTRATION RATE > 60.0 (>42); GLUCOSE, FASTING 91 MG/DL (74-106); POTASSIUM SERUM 4.2 MMOL/L (3.5-5.1); PTH INTACT 36.8 PG/ML (18.5-88.0); SODIUM LEVEL 140 MMOL/L (136-145); TOTAL 25(OH) VITAMIN D 87.6 NG/ML (20.0-100.0); TOTAL PROTEIN 7.3 G/DL (5.7-8.2); VITAMIN B12 LEVEL 455 PG/ML (211-911)
[2022-11-11 16:10] LABS: FREE LAMBDA LIGHT CHAINS SERUM 17.6 mg/L (5.7-26.3); KAPPA/LAMBDA RATIO SERUM 3.41 (0.26-1.65)
== END ==
LOC: M PLALAB 10:40
PROVIDERS: ATTEND Family Medicine
DX: E53.8 Deficiency of other specified B group vitamins (principal); D47.2 Monoclonal gammopathy; L40.9 Psoriasis, unspecified; D50.9 Iron deficiency anemia, unspecified

== ENCOUNTER → 2022-12-06 | Outpatient (CLI) | payer MEDICARE, MEDICAID | LOC: M PLARAD 07:45 | PROVIDERS: ATTEND Family Medicine | DX: R91.1 Solitary pulmonary nodule (principal) | CPT/HCPCS: 78815; A9552 ==

== ENCOUNTER → 2023-02-14 | Outpatient (REF) | payer MEDICARE, MEDICAID | LOC: M SFHCPLAZ 12:10 | PROVIDERS: ATTEND Family Medicine | DX: E55.9 Vitamin D deficiency, unspecified (principal); L40.9 Psoriasis, unspecified; D47.2 Monoclonal gammopathy; D50.9 Iron deficiency anemia, unspecified ==

== ENCOUNTER → 2023-02-14 | Outpatient (CLI) | payer MEDICARE, MEDICAID ==
[2023-02-14 16:53] LABS: HEMATOCRIT 44.8 % (42.0-52.0)
[2023-02-14 16:59] LABS: ALKALINE PHOSPHATASE 96 U/L (46-116); ALT/SGPT 21 U/L (7.0-40); AST/SGOT 18 U/L (<34); BILIRUBIN,TOTAL 0.4 MG/DL (0.3-1.2); BLOOD UREA NITROGEN 13 MG/DL (9-23); CALCIUM LEVEL 9.2 MG/DL (8.3-10.6); CARBON DIOXIDE LEVEL 30 MMOL/L (20-31); CHLORIDE LEVEL 103 MMOL/L (98-107); CREATININE FOR GFR 0.73 MG/DL (0.70-1.30); GLOMERULAR FILTRATION RATE > 60.0 (>42); GLUCOSE, FASTING 74 MG/DL (74-106); POTASSIUM SERUM 3.9 MMOL/L (3.5-5.1); SODIUM LEVEL 141 MMOL/L (136-145); TOTAL PROTEIN 7.3 G/DL (5.7-8.2)
[2023-02-14 17:02] LABS: FERRITIN 87.1 NG/ML (10.5-307.3)
[2023-02-14 17:03] LABS: TOTAL 25(OH) VITAMIN D 95.1 NG/ML (20.0-100.0)
[2023-02-14 17:17] LABS: BASO # 0.1 10^3/uL (0.0-0.2); BASO % 0.8 % (0.0-1.0); EOS # 0.1 10^3/uL (0.0-0.5); EOS % 1.8 % (0.0-3.0); HEMATOCRIT 44.9 % (42.0-52.0); HEMOGLOBIN 14.9 g/dl (13.5-17.5); LYMPH # 1.4 10^3/uL (1.5-5.0); MEAN CORPUSCULAR HEMOGLOBIN 32.7 pg (27.0-33.0); MEAN CORPUSCULAR HGB CONC 33.2 g/dl (32.0-36.5); MEAN CORPUSCULAR VOLUME 98.7 fl (80.0-96.0); MONO # 0.8 10^3/uL (0.0-0.8); MONO % 12.4 % (2.0-8.0); NEUTROPHILS # 3.7 10^3/uL (1.5-8.5); NEUTROPHILS % 61.3 % (36.0-66.0); PLATELET COUNT, AUTOMATED 186 10^3/uL (150-450); RED BLOOD COUNT 4.55 10^6/uL (4.30-6.10)
[2023-02-18 07:09] LABS: FREE KAPPA LIGHT CHAINS SERUM 69.2 mg/L (3.3-19.4); FREE LAMBDA LIGHT CHAINS SERUM 18.7 mg/L (5.7-26.3); SOLUBLE TRANSFERRIN RECEPTOR 20.1 nmol/L (12.2-27.3)
== END ==
LOC: M PLALAB 13:06
PROVIDERS: ATTEND Family Medicine
DX: E55.9 Vitamin D deficiency, unspecified (principal); D47.2 Monoclonal gammopathy; D50.9 Iron deficiency anemia, unspecified; L40.9 Psoriasis, unspecified

== ENCOUNTER → 2023-08-15 | Outpatient (REF) | payer MEDICARE, MEDICAID | LOC: M SFHCPLAZ 11:18 | PROVIDERS: ATTEND Family Medicine | DX: K74.00 Hepatic fibrosis, unspecified (principal); Z12.5 Encounter for screening for malignant neoplasm of prostate; E83.119 Hemochromatosis, unspecified; R73.01 Impaired fasting glucose; D47.2 Monoclonal gammopathy ==

== ENCOUNTER → 2023-08-15 | Outpatient (CLI) | payer MEDICARE, MEDICAID ==
[2023-08-15 15:36] LABS: BASO # 0.1 10^3/uL (0.0-0.2); BASO % 0.6 % (0.0-1.0); EOS # 0.1 10^3/uL (0.0-0.5); HEMATOCRIT 45.5 % (42.0-52.0); HEMOGLOBIN 14.8 g/dl (13.5-17.5); LYMPH # 1.3 10^3/uL (1.5-5.0); LYMPH % 15.6 % (24.0-44.0); MEAN CORPUSCULAR HEMOGLOBIN 32.3 pg (27.0-33.0); MEAN CORPUSCULAR HGB CONC 32.5 g/dl (32.0-36.5); MEAN CORPUSCULAR VOLUME 99.3 fl (80.0-96.0); MONO % 12.5 % (2.0-8.0); NEUTROPHILS # 5.7 10^3/uL (1.5-8.5); NEUTROPHILS % 69.7 % (36.0-66.0); PLATELET COUNT, AUTOMATED 205 10^3/uL (150-450); RED BLOOD COUNT 4.58 10^6/uL (4.30-6.10); WHITE BLOOD COUNT 8.2 10^3/uL (4.0-10.0)
[2023-08-15 15:48] LABS: INR 0.95; PARTIAL THROMBOPLASTIN TIME 26.7 SECONDS (24.8-34.2); PROTHROMBIN TIME 12.4 SECONDS (12.5-14.5)
[2023-08-15 15:51] LABS: ALBUMIN 3.6 G/DL (3.2-5.2); ALKALINE PHOSPHATASE 96 U/L (46-116); ALT/SGPT 27 U/L (7.0-40); AST/SGOT 17 U/L (<34); BILIRUBIN,TOTAL 0.4 MG/DL (0.3-1.2); BLOOD UREA NITROGEN 13 MG/DL (9-23); CALCIUM LEVEL 9.3 MG/DL (8.3-10.6); CARBON DIOXIDE LEVEL 32 MMOL/L (20-31); CHLORIDE LEVEL 105 MMOL/L (98-107); CREATININE FOR GFR 0.67 MG/DL (0.70-1.30); GLOMERULAR FILTRATION RATE > 60.0 (>42); GLUCOSE, FASTING 72 MG/DL (74-106); IRON (FE) 47 UG/DL (65-175); PERCENT SATURATION 15.2 % (19.7-50.0); POTASSIUM SERUM 4.3 MMOL/L (3.5-5.1); SODIUM LEVEL 143 MMOL/L (136-145); TOTAL IRON BINDING CAPACITY 309 UG/DL (250-425); TOTAL PROTEIN 6.9 G/DL (5.7-8.2)
[2023-08-15 15:52] LABS: PSA SCREENING 4.25 NG/ML (< 4.00)
[2023-08-15 15:55] LABS: IMMUNOGLOBULIN A 235.2 MG/DL (40-350); IMMUNOGLOBULIN G 1060 MG/DL (650-1600)
== END ==
LOC: M PLALAB 12:08
PROVIDERS: ATTEND Family Medicine
DX: R73.01 Impaired fasting glucose (principal); E83.119 Hemochromatosis, unspecified; K74.00 Hepatic fibrosis, unspecified; D47.2 Monoclonal gammopathy; Z12.5 Encounter for screening for malignant neoplasm of prostate

== ENCOUNTER → 2023-09-13 | Outpatient (CLI) | payer MEDICARE, MEDICAID | LOC: M RAD 08:21 | PROVIDERS: ATTEND Family Medicine | DX: K74.00 Hepatic fibrosis, unspecified (principal) ==

== ENCOUNTER → 2023-12-19 | Outpatient (REF) | payer MEDICARE, MEDICAID | LOC: M SFHCPLAZ 11:01 | PROVIDERS: ATTEND Family Medicine | DX: K74.00 Hepatic fibrosis, unspecified (principal); Z12.5 Encounter for screening for malignant neoplasm of prostate; E83.119 Hemochromatosis, unspecified; R73.01 Impaired fasting glucose; E53.8 Deficiency of other specified B group vitamins; D50.9 Iron deficiency anemia, unspecified ==

== ENCOUNTER → 2023-12-19 | Outpatient (CLI) | payer MEDICARE, MEDICAID ==
[2023-12-19 13:22] LABS: HEMATOCRIT 45.4 % (42.0-52.0)
[2023-12-19 13:23] LABS: BASO # 0.1 10^3/uL (0.0-0.2); BASO % 0.6 % (0.0-1.0); EOS # 0.1 10^3/uL (0.0-0.5); EOS % 1.6 % (0.0-3.0); HEMATOCRIT 44.8 % (42.0-52.0); HEMOGLOBIN 14.8 g/dl (13.5-17.5); LYMPH # 1.5 10^3/uL (1.5-5.0); LYMPH % 18.9 % (24.0-44.0); MONO % 12.5 % (2.0-8.0); NEUTROPHILS # 5.3 10^3/uL (1.5-8.5); NEUTROPHILS % 65.8 % (36.0-66.0); PLATELET COUNT, AUTOMATED 185 10^3/uL (150-450); RED BLOOD COUNT 4.48 10^6/uL (4.30-6.10); WHITE BLOOD COUNT 8.1 10^3/uL (4.0-10.0)
[2023-12-19 13:34] LABS: HEMOGLOBIN A1c 5.3 % (4.0-6.0)
[2023-12-19 13:52] LABS: ALBUMIN 3.8 G/DL (3.2-5.2); ALKALINE PHOSPHATASE 101 U/L (46-116); ALT/SGPT 21 U/L (7.0-40); AST/SGOT 17 U/L (<34); BILIRUBIN,TOTAL 0.3 MG/DL (0.3-1.2); BLOOD UREA NITROGEN 12 MG/DL (9-23); CALCIUM LEVEL 9.6 MG/DL (8.3-10.6); CARBON DIOXIDE LEVEL 33 MMOL/L (20-31); CHLORIDE LEVEL 104 MMOL/L (98-107); CREATININE FOR GFR 0.71 MG/DL (0.70-1.30); GLOMERULAR FILTRATION RATE > 60.0 (>42); GLUCOSE, FASTING 76 MG/DL (74-106); IRON (FE) 81 UG/DL (65-175); PERCENT SATURATION 25.2 % (19.7-50.0); POTASSIUM SERUM 4.5 MMOL/L (3.5-5.1); PSA SCREENING 4.02 NG/ML (< 4.00); SODIUM LEVEL 139 MMOL/L (136-145); THYROID STIMULATING HORMONE 0.688 uIU/ML (0.55-4.78); TOTAL IRON BINDING CAPACITY 322 UG/DL (250-425); TOTAL PROTEIN 7.2 G/DL (5.7-8.2)
[2023-12-19 13:53] LABS: FERRITIN 42.8 NG/ML (10.5-307.3); FREE T4 1.12 NG/DL (0.89-1.76)
[2023-12-19 13:55] LABS: VITAMIN B12 LEVEL 486 PG/ML (211-911)
== END ==
LOC: M PLALAB 11:18
PROVIDERS: ATTEND Family Medicine
DX: Z00.00 Encounter for general adult medical examination without abnormal findings (principal); K74.00 Hepatic fibrosis, unspecified; E83.119 Hemochromatosis, unspecified; R73.01 Impaired fasting glucose; Z12.5 Encounter for screening for malignant neoplasm of prostate; E53.8 Deficiency of other specified B group vitamins; D50.9 Iron deficiency anemia, unspecified; Z79.899 Other long term (current) drug therapy
CPT/HCPCS: 36415; 80053; 82607; 82728; 82747; 83036; 83550; 84439; 84443; 85025; G0103

== ENCOUNTER → 2024-01-20 | Outpatient (CLI) | payer MEDICARE, MEDICAID | LOC: M RAD 14:47 | PROVIDERS: ATTEND Family Medicine | DX: Z87.891 Personal history of nicotine dependence (principal) ==

== ENCOUNTER → 2024-07-20 | Outpatient (CLI) | payer MEDICARE, MEDICAID ==
[~2024-07-20] MED LIST changes: -ADV100INH INH; +ADVA1AER8 INH
[2024-07-20 14:12] LABS: BASO % 0.5 % (0.0-1.0); EOS # 0.1 10^3/uL (0.0-0.5); EOS % 0.9 % (0.0-3.0); HEMATOCRIT 44.8 % (42.0-52.0); HEMOGLOBIN 14.9 g/dl (13.5-17.5); LYMPH # 1.5 10^3/uL (1.5-5.0); LYMPH % 19.5 % (24.0-44.0); MEAN CORPUSCULAR HEMOGLOBIN 32.5 pg (27.0-33.0); MEAN CORPUSCULAR HGB CONC 33.3 g/dl (32.0-36.5); MEAN CORPUSCULAR VOLUME 97.8 fl (80.0-96.0); MONO # 0.8 10^3/uL (0.0-0.8); MONO % 10.1 % (2.0-8.0); NEUTROPHILS # 5.3 10^3/uL (1.5-8.5); NEUTROPHILS % 68.6 % (36.0-66.0); PLATELET COUNT, AUTOMATED 195 10^3/uL (150-450); RED BLOOD COUNT 4.58 10^6/uL (4.30-6.10); WHITE BLOOD COUNT 7.8 10^3/uL (4.0-10.0)
[2024-07-20 14:21] LABS: FERRITIN 62.5 NG/ML (10.5-307.3)
[2024-07-20 14:22] LABS: IRON (FE) 123 UG/DL (65-175); PERCENT SATURATION 37.6 % (19.7-50.0); TOTAL IRON BINDING CAPACITY 327 UG/DL (250-425)
[2024-07-20 14:23] LABS: ALKALINE PHOSPHATASE 95 U/L (40-129); ALT/SGPT 19 U/L (7.0-40); AST/SGOT 19 U/L (<34); BILIRUBIN,TOTAL 0.5 MG/DL (0.3-1.2); BLOOD UREA NITROGEN 12 MG/DL (9-23); CALCIUM LEVEL 9.4 MG/DL (8.3-10.6); CARBON DIOXIDE LEVEL 30 MMOL/L (20-31); CHLORIDE LEVEL 100 MMOL/L (98-107); CHOLESTEROL LEVEL 176 MG/DL (<200); CHOLESTEROL RISK RATIO 3.23 (<5); CREATININE FOR GFR 0.74 MG/DL (0.70-1.30); GLOMERULAR FILTRATION RATE > 60.0 (>42); GLUCOSE, FASTING 105 MG/DL (74-106); HDL CHOLESTEROL 54.4 MG/DL (>40); NON-HDL-C 121.6 MG/DL; POTASSIUM SERUM 3.9 MMOL/L (3.5-5.1); SODIUM LEVEL 142 MMOL/L (136-145); TOTAL PROTEIN 7.6 G/DL (5.7-8.2); TRIGLYCERIDES LEVEL 233 MG/DL (<150)
[2024-07-20 14:26] LABS: HEMOGLOBIN A1c 4.7 % (4.0-6.0)
[2024-07-21 09:43] LABS: PROTEIN, TOTAL SO 7.4 g/dL (6.1-8.1)
[2024-07-23 17:42] LABS: FREE KAPPA LIGHT CHAINS SERUM 52.5 mg/L (3.3-19.4); FREE LAMBDA LIGHT CHAINS SERUM 17.6 mg/L (5.7-26.3); KAPPA/LAMBDA RATIO SERUM 2.98 (0.26-1.65)
[2024-07-24 09:08] LABS: ALBUMIN SO 4.4 g/dL (3.8-4.8); ALPHA 1 GLOBULINS SO 0.3 g/dL (0.2-0.3); ALPHA 2 GLOBULINS SO 0.8 g/dL (0.5-0.9); BETA 2 GLOBULIN SO 0.4 g/dL (0.2-0.5); BETA GLOBULIN SO 0.5 g/dL (0.4-0.6); GAMMA GLOBULINS SO 1.1 g/dL (0.8-1.7); SPEP IFE ABN PROTEIN BAND 1 0.7 g/dL (NONE DETECTED)
[2024-07-24 14:39] LABS: FREE KAPPA LIGHT CHAINS URINE 17.05 mg/L (<=32.90); FREE LAMBDA LIGHT CHAINS URINE 0.93 mg/L (<=3.79); KAPPA/LAMBDA RATIO URINE 18.33 (<=8.69)
== END ==
LOC: M PLALAB 09:58
PROVIDERS: ATTEND Family Medicine
DX: D47.2 Monoclonal gammopathy (principal); K74.00 Hepatic fibrosis, unspecified; E83.119 Hemochromatosis, unspecified; R73.01 Impaired fasting glucose; F51.04 Psychophysiologic insomnia; Z79.899 Other long term (current) drug therapy

== ENCOUNTER → 2024-08-09 | Outpatient (CLI) | payer MEDICARE, MEDICAID ==
[~2024-08-09] MED LIST changes: +GASTROGRAFIN SOLUTION 30ML ONE
== END ==
LOC: M PLAIMG 09:29
PROVIDERS: ATTEND Family Medicine
DX: K40.90 Unilateral inguinal hernia, without obstruction or gangrene, not specified as recurrent (principal)
CPT/HCPCS: 72193; Q9963

== ENCOUNTER → 2025-01-07 | Outpatient (CLI) | payer MEDICARE, MEDICAID ==
[~2025-01-07] MED LIST changes: -FLOM0.4C39 PO; -GASTROGRAFIN SOLUTION 30ML ONE; +TAMS-18 PO
[2025-01-07 13:37] LABS: PSA SCREENING 4.80 NG/ML (< 4.00)
[2025-01-07 13:42] LABS: ALT/SGPT 21 U/L (7.0-40); AST/SGOT 25 U/L (<34); CALCIUM LEVEL 9.6 MG/DL (8.3-10.6); CARBON DIOXIDE LEVEL 31 MMOL/L (20-31); CHLORIDE LEVEL 104 MMOL/L (98-107); CHOLESTEROL LEVEL 161 MG/DL (<200); CHOLESTEROL RISK RATIO 3.23 (<5); CREATININE FOR GFR 0.88 MG/DL (0.70-1.30); FREE T4 1.14 NG/DL (0.89-1.76); GLOMERULAR FILTRATION RATE > 90.0 (>42); IRON (FE) 46 UG/DL (65-175); LDL CHOLESTEROL 66.2 MG/DL (<100); NON-HDL-C 111.2 MG/DL; PERCENT SATURATION 14.7 % (19.7-50.0); POTASSIUM SERUM 4.3 MMOL/L (3.5-5.1); SODIUM LEVEL 144 MMOL/L (136-145); TRIGLYCERIDES LEVEL 225 MG/DL (<150); VITAMIN B12 LEVEL 541 PG/ML (211-911)
[2025-01-07 13:52] LABS: BASO # 0.1 10^3/uL (0.0-0.2); BASO % 0.6 % (0.0-1.0); EOS # 0.1 10^3/uL (0.0-0.5); EOS % 1.6 % (0.0-3.0); LYMPH # 1.2 10^3/uL (1.5-5.0); LYMPH % 13.5 % (24.0-44.0); MONO # 1.0 10^3/uL (0.0-0.8); MONO % 11.1 % (2.0-8.0); NEUTROPHILS # 6.3 10^3/uL (1.5-8.5); NEUTROPHILS % 72.6 % (36.0-66.0); PLATELET COUNT, AUTOMATED 171 10^3/uL (150-450)
[2025-01-07 14:03] LABS: ESTIMATED AVERAGE GLUCOSE 111.0 MG/DL (60-110)
[2025-01-08 08:57] LABS: PROTEIN, TOTAL SO 7.3 g/dL (6.1-8.1)
[2025-01-11 08:26] LABS: ALBUMIN SO 4.3 g/dL (3.8-4.8); ALPHA 1 GLOBULINS SO 0.4 g/dL (0.2-0.3); ALPHA 2 GLOBULINS SO 0.9 g/dL (0.5-0.9); BETA 2 GLOBULIN SO 0.4 g/dL (0.2-0.5); BETA GLOBULIN SO 0.4 g/dL (0.4-0.6); GAMMA GLOBULINS SO 1.0 g/dL (0.8-1.7); SPEP IFE ABN PROTEIN BAND 1 0.7 g/dL (NONE DETECTED)
[2025-01-11 10:20] LABS: RBC FOLATE 601.0 NG/ML (280-791)
== END ==
LOC: M PLALAB 10:04
PROVIDERS: ATTEND Family Medicine
DX: K74.00 Hepatic fibrosis, unspecified (principal); Z12.5 Encounter for screening for malignant neoplasm of prostate; E07.9 Disorder of thyroid, unspecified; E78.00 Pure hypercholesterolemia, unspecified

== ENCOUNTER → 2025-03-20 | Outpatient (CLI) | payer MEDICARE, MEDICAID | LOC: M RAD 07:27 | PROVIDERS: ATTEND Family Medicine | DX: Z87.891 Personal history of nicotine dependence (principal) ==